=== PATIENT | male | born 2000 | race African-American/Black ===

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

== ENCOUNTER 2020-04-15 21:12 | Emergency (ER) | payer OTHER ==
[2020-04-15 21:20] VITALS: BP 127/82; PULSE 74; TEMP 97.8
== END 2020-04-15 23:11 | disposition home or self-care (01) ==
LOC: JER 21:12
DX: R07.81 Pleurodynia (principal)
CPT/HCPCS: 71046-TC-FY; 93005; 93010; 99284-25